=== PATIENT | female | born 1960 | race African-American/Black ===

== ENCOUNTER 2022-04-01 12:07 | Emergency (ER) | payer OTHER ==
[~2022-04-01] VITALS: Ht 165.1 cm; Wt 88.5 kg
[2022-04-01 12:14] VITALS: BP 156/83
--- NOTE | 2022-04-01 12:54 | NUR ---
Patient discharged to home in stable condition. Written and verbal after care instructions given. Patient verbalizes understanding of instruction.
[2022-04-01] MEDS ORDERED: NAPR-1164 PO (12:58)
== END 2022-04-01 12:52 | disposition home or self-care (01) ==
LOC: ER 12:27
DX: M17.11 Unilateral primary osteoarthritis, right knee (principal); I10 Essential (primary) hypertension; Z60.2 Problems related to living alone